=== PATIENT | male | born 1980 | race Caucasian/White ===

== ENCOUNTER 2017-10-25 14:13 | Inpatient (IN) | payer OTHER ==
[~2017-10-25] VITALS: Ht 162.6 cm; Wt 59.9 kg
[~2017-10-25 14:13] MED LIST: AMLO-114 PO; DOCU1TAB6 PO; FIBER PO; HPRF5 IV; IBUP-1459 PO; LISI10TA PO; NUTR-977 PO; OMEP40CA PO; ONDA8TAB7 PO; OXYC1TAB PO; OXYC1TAB3 PO; PROM25TA9 PO; SENN-61 PO; docusate
[2017-10-25] MEDS ORDERED: SODIUM CHLORIDE 0.9% 1000ML 1,000 ML IV STA ×2 (14:26→15:17)
--- NOTE | 2017-10-25 14:42 | EMERGENCY ROOM VISIT NOTE ---
History Report prepared by Tomasa: Jessie Lema Under the Supervision of: Dr. He Gamble M.D. First contact with patient: 14:15 Stated Complaint: CONFUSION/FALL History of Present Illness The patient is a 37 year old white male with a past medical history of lung cancer with stage 4 METS to the brain and liver who presents to the ED with a cc of worsening confusion beginning this past week. Per security guards, they are unsure what happened. Nursing staff reports that the patient had fallen today and his confusion increased. Nursing staff reports that he has been bed bound this past week. Positive weakness. HPI and ROS limited secondary to mental status. 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 A total of ten systems were reviewed and were otherwise negative. Past Medical & Surgical Medical Problems: (1) Cerebral aneurysm (2) Hypertension Family History No pertinent family history Social History Smoking Status: Current Every Day Smoker Marital Status: single Housing Status: other Occupation Status: unemployed Current/Historical Medications Scheduled Amlodipine (Norvasc), 10 MG PO DAILY Denosumab (Xgeva), 120 MG SQ Q4WK Docusate Sodium (Docusate Sodium), 100 MG PO TID Fiber Laxative (Fiber Laxative), 625 MG PO BID Heparin Sod (Porcine) (Heparin 100 Unit/Ml 5ML Flush), 10 ML IV UD Lactulose (Chronulac), 15 ML PO BID Lisinopril (Prinivil), 10 MG PO DAILY Metoclopramide (Reglan), 10 MG PO TID Omeprazole (Prilosec), 40 MG PO BID Oxycodone HCl (Oxycodone HCl ER), 40 MG PO BID Prednisone (Prednisone), 20 MG PO DAILY Senna (Senokot), 1 TAB PO BID Scheduled PRN Ibuprofen (Motrin), 400 MG PO TID PRN for Mild Pain Ondansetron Hcl (Zofran), 8 MG PO TID PRN for Nausea or Vomiting Promethazine Hcl (Phenergan), 25 MG PO QID PRN for Nausea Allergies Coded Allergies: Penicillins (Verified Allergy, Unknown, ., 10/25/17) Hydrochlorothiazide (Verified Adverse Reaction, Severe, Kidney failure, ) Amoxicillin (Verified Adverse Reaction, Mild, Ulcer-Mouth, 10/25/17) Clavulanic Acid (Verified Adverse Reaction, Mild, Ulcer-Mouth, 10/25/17) Physical Exam Vital Signs Date Time Temp Pulse Resp B/P (MAP) Pulse Ox O2 Delivery O2 Flow Rate FiO2 10/25/17 16:50 79/54 10/25/17 16:13 65 17 76 10/25/17 15:43 61 20 95 10/25/17 15:13 60 16 94 10/25/17 15:10 159/134 10/25/17 14:54 95 Room Air 10/25/17 14:43 57 18 94 10/25/17 14:32 127/79 10/25/17 14:29 136 10/25/17 14:27 160/141 10/25/17 14:25 36.7 95 26 127/79 97 Room Air Physical Exam GENERAL: Awake, alert, well-appearing, NAD, follows commands, smells of urine. HENT: Normocephalic, atraumatic. EYES: Normal conjunctiva. Sclera non-icteric. NECK: Supple. No nuchal rigidity. FROM. RESPIRATORY: Rhonchus breath sounds, no wheezing, crackles CARDIAC: RRR, no MRG ABDOMEN: Soft, NTND, BS+ MSK: No chest wall TTP, no LE edema NEURO: GCS 15, CN 2-12 intact, moves all 4s on command, symmetric strength SKIN: No jaundice noted. Dermitis over the medial anterior thighs. Questionable blanching in a small erythematous rash that is not confluent on bilateral feet. Pressure ulcerations to the left buttock and thigh. Stage 2. Medical Decision & Procedures ER Provider Diagnostic Interpretation: Radiology results as stated below per my review and radiologist interpretation: CHEST ONE VIEW PORTABLE HISTORY: 37 years-old Male EVALUATE WEAKNESS acute weakness. History of small cell lung carcinoma COMPARISON: Chest radiograph 08/14/2016 TECHNIQUE: Upright portable AP view of the chest FINDINGS: Cardiac silhouette is within normal limits. Left subclavian Xgbaxs-m-Bfce catheter is noted with distal tip in the right atrium. Focal masslike opacity the level the right lung base is again seen, 3.0 x 1.3 cm. Mediastinal prominence compatible with patient's known mediastinal mass. Patchy alveolar opacities are present within left perihilar distribution and left lung base. No pneumothorax or pleural effusion. Emphysema. The bones appear grossly intact. IMPRESSION: 1. New patchy opacities of the left perihilar distribution and left lung base suspicious for pneumonia or metastasis. Follow-up recommended. 2. Focal nodular opacity of the right lower lobe redemonstrated. The above report was generated using voice recognition software. It may contain grammatical, syntax or spelling errors. Electronically signed by: Nabeel Lopez M.D. 10/25/2017 2:45 PM Dictated Date/Time: 10/25/2017 2:42 PM HEAD WITHOUT CONTRAST (CT) CLINICAL HISTORY: 37 years-old Male with h/o of lung CA w/ liver/brain mets, CC confusion/fall. Acute confusion status post fall. History of lung cancer TECHNIQUE: Multiple axial CT images of the head were obtained without contrast. A dose lowering technique was utilized adhering to the principles of ALARA. CT DOSE: 614.27 mGy.cm COMPARISON: None. FINDINGS: No acute intracranial hemorrhage, midline shift, intracranial mass, hydrocephalus, territorial ischemia or abnormal extra-axial collection. Study is limited secondary to prominent streak artifact in the distribution of the suprasellar cistern, possibly from prior aneurysm coiling. Confluent areas of moderate hypoattenuation noted within the subcortical, deep and periventricular white matter of the cerebral hemispheres bilaterally. The calvarium is intact. The paranasal sinuses, mastoid air cells, and middle ear cavities are clear. IMPRESSION: 1. No acute intracranial abnormality identified. 2. Prominent streak artifact from metallic density structure within the suprasellar cistern suggesting aneurysm coils. 3. Confluent areas of moderate hypoattenuation noted within the subcortical, deep and periventricular white matter of the cerebral hemispheres bilaterally. These findings are nonspecific with differential considerations including but not limited to chronic microvascular ischemic changes, or demyelinating disease among other etiologies. The above report was generated using voice recognition software. It may contain grammatical, syntax or spelling errors. Electronically signed by: Nabeel Lopez M.D. 10/25/2017 4:03 PM Dictated Date/Time: 10/25/2017 3:58 PM ABD/PELVIS WITHOUT FOR STONE HISTORY: 37 years-old Male ARF, uremia, mets acute uremia with metastatic lung cancer. COMPARISON: CT abdomen and pelvis and CT chest from outside facility 06/02/2017. Images from comparison studies are available without associated report. TECHNIQUE: Multiple axial CT images of the abdomen and pelvis were obtained without contrast. A dose lowering technique was used consistent with the principals of KATHY. FINDINGS: Lobular soft tissue attenuating centrally cavitary mass of the right lower lobe on image 7 series 3 measures 4.0 x 2.2 cm, enlarged from study dated 06/02/2017 where it measured 2.8 x 1.6 cm on image 69 series 2 of that study. Emphysematous changes of the lung bases are again noted. There is progression of multifocal geographic groundglass and consolidative opacities of the imaged lung bases with large consolidative opacity of the left lower lobe measuring up to 9.5 x 3.0 cm. There is no pneumatosis or pneumoperitoneum identified. Imaged inferior cardiac chambers are unremarkable. Evaluation of the solid abdominal organs is limited without the use of IV contrast. There is a low attenuating 9 mm lesion noted within the subserosal posterior right hepatic lobe which appears new from comparison study. The liver is otherwise unremarkable. The spleen, gallbladder, pancreas and adrenal glands are within normal limits. Kidneys, ureters and prostate appear unremarkable. Guardado catheter is noted within a collapsed or bladder lumen. Moderate atherosclerosis of the aorta. No bulky retroperitoneal adenopathy. Small sliding-type hiatal hernia. No bowel obstruction or focal bowel wall thickening identified. There is moderate stool volume of the colon. The appendix appears normal. Soft tissues are unremarkable. Bones appear intact. Multilevel degenerative changes of the spine. Remote pars defects at L5 with grade 1 anterolisthesis. IMPRESSION: 1. Progressive enlargement of a centrally cavitary lobular soft tissue attenuating mass of the right lower lobe from comparison study dated 06/02/2017. Additionally, there is multifocal geographic consolidative opacities within the bilateral lung bases suggesting infectious or inflammatory pneumonitis and/or progression of metastatic disease. 2. Emphysema. 3. Ill-defined low attenuating 9 mm lesion of the posterior right hepatic lobe appears new from comparison study, suspicious for a possible hepatic metastasis. Evaluation of the solid abdominal organs is limited without contrast. 4. Suggested constipation. 5. No evidence of pathologic adenopathy. The above report was generated using voice recognition software. It may contain grammatical, syntax or spelling errors. Electronically signed by: Nabeel Lopez M.D. 10/25/2017 4:45 PM Dictated Date/Time: 10/25/2017 4:32 PM Laboratory Results 10/25/17 14:37 Red Blood Count 4.73, Mean Corpuscular Volume 82.9, Mean Corpuscular Hemoglobin 29.8, Mean Corpuscular Hemoglobin Concent 36.0, Mean Platelet Volume 10.9, Neutrophils (%) (Auto) 90.5, Lymphocytes (%) (Auto) 5.7, Monocytes (%) (Auto) 3.5, Eosinophils (%) (Auto) 0.0, Basophils (%) (Auto) 0.0, Neutrophils # (Auto) 19.01, Lymphocytes # (Auto) 1.19, Monocytes # (Auto) 0.74, Eosinophils # (Auto) 0.01, Basophils # (Auto) 0.00 10/25/17 14:37 Test 10/25/17 14:37 10/25/17 16:16 White Blood Count 21.02 K/uL (4.8-10.8) Red Blood Count 4.73 M/uL (4.7-6.1) Hemoglobin 14.1 g/dL (14.0-18.0) Hematocrit 39.2 % (42-52) Mean Corpuscular Volume 82.9 fL (80-100) Mean Corpuscular Hemoglobin 29.8 pg (25-34) Mean Corpuscular Hemoglobin Concent 36.0 g/dl (32-36) Platelet Count 250 K/uL (130-400) Mean Platelet Volume 10.9 fL (7.4-10.4) Neutrophils (%) (Auto) 90.5 % Lymphocytes (%) (Auto) 5.7 % Monocytes (%) (Auto) 3.5 % Eosinophils (%) (Auto) 0.0 % Basophils (%) (Auto) 0.0 % Neutrophils # (Auto) 19.01 K/uL (1.4-6.5) Lymphocytes # (Auto) 1.19 K/uL (1.2-3.4) Monocytes # (Auto) 0.74 K/uL (0.11-0.59) Eosinophils # (Auto) 0.01 K/uL (0-0.5) Basophils # (Auto) 0.00 K/uL (0-0.2) RDW Standard Deviation 46.3 fL (36.4-46.3) RDW Coefficient of Variation 15.2 % (11.5-14.5) Immature Granulocyte % (Auto) 0.3 % Immature Granulocyte # (Auto) 0.07 K/uL (0.00-0.02) Hypersegmented Polys 1+ Prothrombin Time 11.1 SECONDS (9.0-12.0) Prothromb Time International Ratio 1.0 (0.9-1.1) Activated Partial Thromboplast Time 31.1 SECONDS (21.0-31.0) Partial Thromboplastin Ratio 1.2 Venous Blood pH 7.27 (7.36-7.41) Venous Blood Partial Pressure CO2 42 mmHg (38.0-50.0) Venous Blood Partial Pressure O2 21 mmHg Venous Blood HCO3 19 mmol/L Venous Blood Oxygen Saturation < 60.0 % Venous Blood Base Excess -7.7 mEq/L Anion Gap 20.0 mmol/L (3-11) Est Creatinine Clear Calc Drug Dose 9.7 ml/min Estimated GFR () 7.7 Estimated GFR (Non- 6.6 BUN/Creatinine Ratio 19.5 (10-20) Lactic Acid Level 1.8 mmol/L (0.4-2.0) Calcium Level 9.1 mg/dl (8.5-10.1) Magnesium Level 2.9 mg/dl (1.8-2.4) Total Bilirubin 0.4 mg/dl (0.2-1) Direct Bilirubin 0.2 mg/dl (0-0.2) Aspartate Amino Transf (AST/SGOT) 47 U/L (15-37) Alanine Aminotransferase (ALT/SGPT) 23 U/L (12-78) Alkaline Phosphatase 91 U/L (45-117) Ammonia 22.0 umol/L (11-32) Troponin I 0.048 ng/ml (0-0.045) Total Protein 8.2 gm/dl (6.4-8.2) Albumin 4.0 gm/dl (3.4-5.0) Lipase 500 U/L (73-393) Thyroid Stimulating Hormone (TSH) 1.500 uIu/ml (0.300-4.500) Urine Color YELLOW Urine Appearance CLEAR (CLEAR) Urine pH 5.0 (4.5-7.5) Urine Specific [place] 1.018 (1.000-1.030) Urine Protein NEG (NEG) Urine Glucose (UA) NEG (NEG) Urine Ketones NEG (NEG) Urine Occult Blood NEG (NEG) Urine Nitrite NEG (NEG) Urine Bilirubin NEG (NEG) Urine Urobilinogen NEG (NEG) Urine Leukocyte Esterase TRACE (NEG) Urine WBC (Auto) 0 /hpf (0-5) Urine RBC (Auto) 0-4 /hpf (0-4) Urine Hyaline Casts (Auto) 1-5 /lpf (0-5) Urine Epithelial Cells (Auto) 0-5 /lpf (0-5) Urine Bacteria (Auto) NEG (NEG) Laboratory results reviewed by me Medications Administered Medications (Trade) Dose Ordered Sig/Shakila Route Start Time Stop Time Status Last Admin Dose Admin Sodium Chloride 1,000 ml @ 999 mls/hr Q1H1M STAT IV 10/25/17 14:26 10/25/17 15:26 DC 10/25/17 15:21 999 MLS/HR Cefepime HCl 2000 mg/Dextrose 112.5 ml @ 200 mls/hr ONE STAT IV 10/25/17 14:50 10/25/17 15:23 DC 10/25/17 16:47 200 MLS/HR Levofloxacin (Levaquin / D5W) 750 mg NOW ONCE IV 10/25/17 15:00 10/25/17 15:01 DC 10/25/17 15:22 750 MG Vancomycin HCl 1250 mg/Sodium Chloride 275 ml @ 125 mls/hr NOW STAT IV 10/25/17 14:50 10/25/17 17:01 DC 10/25/17 15:33 125 MLS/HR Sodium Chloride 1,000 ml @ 999 mls/hr Q1H1M STAT IV 10/25/17 15:17 10/25/17 16:17 DC 10/25/17 15:28 999 MLS/HR Lorazepam (Ativan Inj) 0.5 mg NOW STAT IV 10/25/17 15:17 10/25/17 15:23 DC 10/25/17 15:28 0.5 MG Procedure Lumbar Puncture Indication: Confusion, AMS. Verbal consent was obtained after the risks and benefits were explained, including but not limited to headache, bleeding/clotting, scarring, infection, pain, and bone/joint/nerve damage. At this time, the risks of the procedure are less than the risks of NOT performing the procedure. A time out was taken and the correct patient and site identified. The patient was placed in the right lateral decubitus position and the back was prepped with betadine and draped in the standard fashion. The L3 intervertebral space was identified, anesthetized locally with 1% lidocaine without epinephrine, and the spinal needle was inserted through the skin with the bevel parallel to the dural fibers. The needle was carefully advanced into the lumbar cistern and 2 tubes of straw colored and 2 tubes of bloody CSF was obtained. The stylet was replaced and the needle was removed. A bandaid was placed and the patient was placed in the supine position. The patient tolerated the procedure well and there were no complications. ECG Indication: altered mental status Rate (beats per minute): 131 Rhythm: atrial fibrillation Findings: other (RVR, lots of motion artifact) Comparison ECG Date: September 17, 2016 Change: Atrial fibrillation is new. ED Course 1420: The patient was evaluated in room C10. A complete history and physical exam was performed. 1519: I reevaluated the patient and I do not think the pressure ulcer is a deep space infection. No crepitus or fluctuance. No pain. 1558: Discussed the patient's case with Dr. Lee -Nephrology. He states that the patient should go to the ICU. 1629: Discussed the patient's case with Dr. Royal -Seafood Clerk. He would like the patient to have an LP performed. 1655: Discussed the patient's case with Dr. Enriquez. The patient will be evaluated for further treatment and disposition. Medical Decision The patient is a 37 year old white male with a past medical history of lung cancer with stage 4 METS to the brain and liver who presents to the ED with a cc of worsening confusion beginning this past week. Differential diagnoses include UTI, urosepsis, worsening tumor burden, ICH, sepsis. Patient was seen and evaluated the bedside. Per the history gleaned from the paperwork the patient had a fall today. Patient does have stage IV lung cancer with metastases to the brain and liver. Patient is a and O 2 follows commands. He does not have any gross neurologic deficits however the history and physical exam are somewhat limited. Unsure as to whether not this is baseline. Patient had undergone chemotherapy and radiation therapy in the past. Patient does have excoriations and rash to the medial thighs as well as the buttock area. Patient is tachycardic. Patient is afebrile. Patient did have a CT noncontrast brain, blood work, blood and urine cultures, IV fluids, EKG, troponin, chest x-ray completed. Patient was noted to have A. fib with RVR this is likely related to sepsis. Patient's lactate was normal. Patient's VBG did show an acidosis with a normal PCO2. Patient's acidosis is likely related to uremia patient has acute renal failure. Patient's BUNs 177 with a creatinine of 9. This is new. Patient is non-con CT was negative for any acute pathology. Patient did have CT non-con of the abdomen pelvis. This was also negative for any acute process. It does show his tumor burden within the abdomen. No obstruction is noted. Patient did have Guardado that was placed. Patient was making good urine. Given the patient's acute renal failure I did discuss the patient with the cosmetic counselor birgit came to evaluate the patient. Patient was alert and a bicarbonate drip. Given the patient's tachycardia and acute renal failure and further monitoring I did discuss the patient with the adoption social worker who also saw the patient. Patient was also given steroids. An LP was performed which did show some straw- colored and then bloody fluid. Patient tolerated the procedure well. This was sent off for further analysis. Acyclovir was also added for coverage. Medication Reconcilliation Current Medication List: was personally reviewed by al Blood Pressure Screening Patient's blood pressure: Normal blood pressure Will be further monitored by hospitalist. Consults Time Called: [phone] Consulting Physician: Dr. Lee -Nephrology Returned Call: [phone] Discussed the patient's case with Dr. Jesus Cuadra. He states that the patient should go to the ICU. Additional Consults: Time Called: 1625 Consulted Physician: Dr. Royal -Seafood Clerk Returned Call: [phone] Additional Comments: Discussed the patient's case with Dr. Royal -Seafood Clerk. He would like the patient to have an LP performed. Time Called: 1653 Consulted Physician: Dr. Enriquez Returned Call: [phone] Additional Comments: Discussed the patient's case with Dr. Enriquez. The patient will be evaluated for further treatment and disposition. Impression Primary Impression: Metastatic lung cancer (metastasis from lung to other site) Additional Impressions: Sepsis Pneumonia Confusion Acute renal failure Acidosis Critical Care I have personally spent greater than 80 minutes of critical care time in the direct management of this patient. This includes bedside care, interpretation of diagnostic studies, and testing, discussion with consultants, patient, and family members, and other required patient management activities. This 80 minutes is in excess of all separately billable procedures. Scribe Attestation The scribe's documentation has been prepared under my direction and personally reviewed by me in its entirety. I confirm that the note above accurately reflects all work, treatment, procedures, and medical decision making performed by me. Departure Information Dispostion Being Evaluated By Hospitalist Amy Cyr (PCP) Problem Qualifiers Primary Impression: Metastatic lung cancer (metastasis from lung to other site) Laterality: unspecified laterality Qualified Codes: C34.90 - Malignant neoplasm of unspecified part of unspecified bronchus or lung Additional Impressions: Sepsis Sepsis type: sepsis due to unspecified organism Qualified Codes: A41.9 - Sepsis, unspecified organism Pneumonia Pneumonia type: due to unspecified organism Laterality: right Lung location : lower lobe of lung Qualified Codes: J18.1 - Lobar pneumonia, unspecified organism Acute renal failure Acute renal failure type: unspecified Qualified Codes: N17.9 - Acute kidney failure, unspecified
--- NOTE | 2017-10-25 14:47 | DIAGNOSTIC IMAGING REPORT ---
CHEST ONE VIEW PORTABLE HISTORY: 37 years-old Male EVALUATE WEAKNESS acute weakness. History of small cell lung carcinoma COMPARISON: Chest radiograph 08/14/2016 TECHNIQUE: Upright portable AP view of the chest FINDINGS: Cardiac silhouette is within normal limits. Left subclavian Knexlx-h-Lngn catheter is noted with distal tip in the right atrium. Focal masslike opacity the level the right lung base is again seen, 3.0 x 1.3 cm. Mediastinal prominence compatible with patient's known mediastinal mass. Patchy alveolar opacities are present within left perihilar distribution and left lung base. No pneumothorax or pleural effusion. Emphysema. The bones appear grossly intact. IMPRESSION: 1. New patchy opacities of the left perihilar distribution and left lung base suspicious for pneumonia or metastasis. Follow-up recommended. 2. Focal nodular opacity of the right lower lobe redemonstrated. The above report was generated using voice recognition software. It may contain grammatical, syntax or spelling errors. Electronically signed by: Nabeel Lopez M.D. 10/25/2017 2:45 PM Dictated Date/Time: 10/25/2017 2:42 PM
[2017-10-25] MEDS ORDERED: CEFEPIME IV 2,000 MG in DEXTROSE 5% 100ML 100 ML IV STA (14:50)
[2017-10-25] MEDS ORDERED: VANCOMYCIN INJ 1,250 MG in SODIUM CHLORIDE 0.9% 250ML 250 ML IV STA (14:50)
[2017-10-25] MEDS ORDERED: METO-157 PO (14:57)
[2017-10-25] MEDS ORDERED: LACT10SO17 PO (14:57)
[2017-10-25] MEDS ORDERED: OMEP40CA41 PO (15:00)
[2017-10-25] MEDS ORDERED: ONDA8TAB6 PO (15:00)
[2017-10-25] MEDS ORDERED: LEVAQUIN 750MG / 150ML D5W IV ONE (15:00)
[2017-10-25] MEDS ORDERED: [UNRECOGNIZED DRUG - CODE] PO (15:00)
[2017-10-25] MEDS ORDERED: PRED20TA PO (15:01)
[2017-10-25] MEDS ORDERED: HPRF5 IV (15:05)
[2017-10-25] MEDS ORDERED: DENOINJ SQ (15:05)
[2017-10-25 15:06] LABS: VEN BLD GAS O2 SATURATION < 60.0 %; VEN BLOOD GAS BASE EXCESS -7.7 mEq/L; VENOUS BLOOD GAS PCO2 42 mmHg (38.0-50.0); VENOUS BLOOD GAS PO2 21 mmHg
[2017-10-25 15:09] LABS: HEMATOCRIT 39.2 % (42-52); MEAN CELL VOLUME 82.9 fL (80-100); MEAN CORPUSCULAR HEMOGLOBIN 29.8 pg (25-34); MEAN PLATELET VOLUME 10.9 fL (7.4-10.4); PLATELET COUNT 250 K/uL (130-400); RED BLOOD COUNT 4.73 M/uL (4.7-6.1); WHITE BLOOD COUNT 21.02 K/uL (4.8-10.8)
[2017-10-25 15:17] LABS: PARTIAL THROMBOPLASTIN RATIO 1.2; PROTHROMBIN TIME (PATIENT) 11.1 SECONDS (9.0-12.0)
[2017-10-25] MEDS ORDERED: LORAZEPAM 2 MG/ML 1 ML VIAL IV STA (15:17)
[2017-10-25 15:35] LABS: COMPLETE YES; HYPERSEGMENTED POLYS 1+; IG% 0.3 %; LYMPH % 5.7 %; LYMPH ABS # 1.19 K/uL (1.2-3.4); MONO % 3.5 %; NEUT % 90.5 %
[2017-10-25 15:44] LABS: CALCIUM 9.1 mg/dl (8.5-10.1); CREATININE 9.07 mg/dl (0.60-1.40); MAGNESIUM 2.9 mg/dl (1.8-2.4); POTASSIUM 5.3 mmol/L (3.5-5.1); THYROID STIMULATING HORMONE 1.5 uIu/ml (0.300-4.500)
[2017-10-25 15:54] LABS: BUN/CREATININE RATIO 19.5 (10-20)
--- NOTE | 2017-10-25 16:05 | DIAGNOSTIC IMAGING REPORT ---
HEAD WITHOUT CONTRAST (CT) CLINICAL HISTORY: 37 years-old Male with h/o of lung CA w/ liver/brain mets, CC confusion/fall. Acute confusion status post fall. History of lung cancer TECHNIQUE: Multiple axial CT images of the head were obtained without contrast. A dose lowering technique was utilized adhering to the principles of ALARA. CT DOSE: 614.27 mGy.cm COMPARISON: None. FINDINGS: No acute intracranial hemorrhage, midline shift, intracranial mass, hydrocephalus, territorial ischemia or abnormal extra-axial collection. Study is limited secondary to prominent streak artifact in the distribution of the suprasellar cistern, possibly from prior aneurysm coiling. Confluent areas of moderate hypoattenuation noted within the subcortical, deep and periventricular white matter of the cerebral hemispheres bilaterally. The calvarium is intact. The paranasal sinuses, mastoid air cells, and middle ear cavities are clear. IMPRESSION: 1. No acute intracranial abnormality identified. 2. Prominent streak artifact from metallic density structure within the suprasellar cistern suggesting aneurysm coils. 3. Confluent areas of moderate hypoattenuation noted within the subcortical, deep and periventricular white matter of the cerebral hemispheres bilaterally. These findings are nonspecific with differential considerations including but not limited to chronic microvascular ischemic changes, or demyelinating disease among other etiologies. The above report was generated using voice recognition software. It may contain grammatical, syntax or spelling errors. Electronically signed by: Nabeel Lopez M.D. 10/25/2017 4:03 PM Dictated Date/Time: 10/25/2017 3:58 PM
[2017-10-25] MEDS ORDERED: SODIUM BICARBONATE 8.4% INJ 75 MEQ in SODIUM CHLORIDE 0.45% 1000ML 1,000 ML IV SCH (16:15)
[2017-10-25 16:29] LABS: URINE APPEARANCE CLEAR (CLEAR); URINE BILIRUBIN NEG (NEG); URINE COLOR YELLOW; URINE EPITHELIAL CELL AUTO 0-5 /lpf (0-5); URINE NITRITE NEG (NEG); URINE SPECIFIC GRAVITY 1.018 (1.000-1.030); UROBILINOGEN NEG (NEG)
[2017-10-25 16:37] LABS: MANUAL MICROSCOPIC REQUIRED? NO; REVIEW REQ? NO
--- NOTE | 2017-10-25 16:47 | DIAGNOSTIC IMAGING REPORT ---
ABD/PELVIS WITHOUT FOR STONE HISTORY: 37 years-old Male ARF, uremia, mets acute uremia with metastatic lung cancer. COMPARISON: CT abdomen and pelvis and CT chest from outside facility 06/02/2017. Images from comparison studies are available without associated report. TECHNIQUE: Multiple axial CT images of the abdomen and pelvis were obtained without contrast. A dose lowering technique was used consistent with the principals of KATHY. FINDINGS: Lobular soft tissue attenuating centrally cavitary mass of the right lower lobe on image 7 series 3 measures 4.0 x 2.2 cm, enlarged from study dated 06/02/2017 where it measured 2.8 x 1.6 cm on image 69 series 2 of that study. Emphysematous changes of the lung bases are again noted. There is progression of multifocal geographic groundglass and consolidative opacities of the imaged lung bases with large consolidative opacity of the left lower lobe measuring up to 9.5 x 3.0 cm. There is no pneumatosis or pneumoperitoneum identified. Imaged inferior cardiac chambers are unremarkable. Evaluation of the solid abdominal organs is limited without the use of IV contrast. There is a low attenuating 9 mm lesion noted within the subserosal posterior right hepatic lobe which appears new from comparison study. The liver is otherwise unremarkable. The spleen, gallbladder, pancreas and adrenal glands are within normal limits. Kidneys, ureters and prostate appear unremarkable. Guardado catheter is noted within a collapsed or bladder lumen. Moderate atherosclerosis of the aorta. No bulky retroperitoneal adenopathy. Small sliding-type hiatal hernia. No bowel obstruction or focal bowel wall thickening identified. There is moderate stool volume of the colon. The appendix appears normal. Soft tissues are unremarkable. Bones appear intact. Multilevel degenerative changes of the spine. Remote pars defects at L5 with grade 1 anterolisthesis. IMPRESSION: 1. Progressive enlargement of a centrally cavitary lobular soft tissue attenuating mass of the right lower lobe from comparison study dated 06/02/2017. Additionally, there is multifocal geographic consolidative opacities within the bilateral lung bases suggesting infectious or inflammatory pneumonitis and/or progression of metastatic disease. 2. Emphysema. 3. Ill-defined low attenuating 9 mm lesion of the posterior right hepatic lobe appears new from comparison study, suspicious for a possible hepatic metastasis. Evaluation of the solid abdominal organs is limited without contrast. 4. Suggested constipation. 5. No evidence of pathologic adenopathy. The above report was generated using voice recognition software. It may contain grammatical, syntax or spelling errors. Electronically signed by: Nabeel Lopez M.D. 10/25/2017 4:45 PM Dictated Date/Time: 10/25/2017 4:32 PM
[2017-10-25] MEDS ORDERED: DEXAMETHASONE **PF** INJ 10 MG/ML VIAL IM ONE (17:00)
[2017-10-25] MEDS ORDERED: ACYCLOVIR SOD INJ 600 MG in DEXTROSE 5% 100ML 100 ML IV ONE (17:30)
[2017-10-25] MEDS ORDERED: PROMETHAZINE HCL 25 MG TAB PO PRN (18:00)
[2017-10-25] MEDS ORDERED: HYDROmorphone INJ 1 MG/ML SYR IV PRN (18:00)
[2017-10-25] MEDS ORDERED: ZOLPIDEM TARTRATE 5 MG TAB PO PRN (18:00)
--- NOTE | 2017-10-25 18:27 | Nephrology Consultation ---
Nephrology Consultation Date & Providers Date of Consultation: Oct 25, 2017. Primary Care Provider: Amy WU Referring Provider: Reason for Consultation Acute renal insufficiency History of Present Illness Mr. Ney Henderson is a 37-year-old male with metastatic non small cell lung cancer who presented to the ED at [facility] today for evaluation of mental status changes. Medical history is notable for known progressive metastatic disease including lung and liver metastasis. Treatment was started in 2014 with Alimta and carboplatinum. The patient was then maintained on Opdivo but unfortunately disease progressed. Ney then elected to forgo additional therapy and focus on palliative care. Most recent follow up in the cancer center was in March-April of 2017. Functional status has been very limited since that time. Mental status and overall functional status declining over the past 2-3 weeks but appreciably within the past couple of days. Today, Ney was found to have fallen from wheelchair to floor. The fall was unwitnessed but he was not unattended for any significant amount of time. No specific injury was identified. Mr. Henderson is an inmate and he was transferred to the ED at discretion of correction staff where he is a resident in the [facility] requiring daily assistance at baseline for most ADL's. He uses a wheelchair and does not ambulate independently. Appetite has been very poor. He had biju independent with meals but eating very little for the past couple of weeks. Medical history was predominately obtained from nursing staff at the [facility] and medical records. I discussed the plan of care with Dr. Gamble as well as Dr. Enriquez. Mental status is waxing and waning. Mr. Henderson did not initially respond to any questions or provide any history. He was agitated. When I returned several minutes later, I was able to obtain some simple answers and he did express some understanding of questions. He was able to respond when questioned to discussion regarding dialysis by stating "no, no, no." This is consistent with what I was told from nursing staff in the [facility] who told me that Ney had decided to focus on palliative care and to establish a DNR/DNI status avoiding any advanced interventions or significant escalation of care. An advanced directive provided also confirms that dialysis would not be part of the plan of care. Overall, the patient's prognosis is guarded and life expectancy limited. He was evaluated by the laundry presser in the ICU. I spoke with the laundry presser and we confirmed that ICU was not consistent with current goals of care. Interestingly, medical history suggests [employer] metastases including epidural metastatic disease but I am not able to confirm the extent of this finding. Evaluation in the Emergency Department revealed a leukocytosis (neurophil predominate), tachycardia and tachypnea. The patient is afebrile. Blood pressure was normal. There is advanced renal failure. Most recent laboratory studies from April 2017 documented a baseline creatinine of 1.1 mg/dL at that time. Current creatinine is 9 mg/dL with a BUN of 177. Associated metabolic abnormalities include a serum sodium of 131, potassium of 5.3, HCO3 of 18 and AG of 20. Lactate was <2. No new nephrotoxic medications including significant NSAID use were identified. Home medications include lisinopril. Broad spectrum antibiotics started for SIRs/possible sepsis with cefepime and vancomycin. LP was obtained. Urine analysis is bland with acellular microscopy. CT of the chest, abdomen and pelvis was personally reviewed. Kidneys are normal in appearance. Findings include progressive enlargement of a centrally cavitary mass of the right lower lobe as well as multifocal consolidative opacities within bilateral lung bases as well as progressive malignant disease in the liver. EKG documented atrial fibrillation with RVR. CT of the head is limited by motion artifact but no significant acute bleed or lesion is identified. Guardado catheter was placed without reported difficulty. Concentrate urine is draining. Past Medical/Surgical History Medical: -- Metastatic non-small cell lung cancer with disease in lung and liver -- Brain aneurysm coiled previously -- Hypertension Surgical: coiling of brain aneurysm Allergies Coded Allergies: Penicillins (Verified Allergy, Unknown, ., 10/25/17) Hydrochlorothiazide (Verified Adverse Reaction, Severe, Kidney failure, ) Amoxicillin (Verified Adverse Reaction, Mild, Ulcer-Mouth, 10/25/17) Clavulanic Acid (Verified Adverse Reaction, Mild, Ulcer-Mouth, 10/25/17) Inpatient Medications Current Inpatient Medications Medications (Trade) Dose Ordered Sig/Shakila Route Start Time Stop Time Status Last Admin Dose Admin Sodium Bicarbonate 75 meq/Sodium Chloride 1,075 ml @ 200 mls/hr [id number] IV 10/25/17 16:15 10/25/17 21:37 10/25/17 17:24 200 MLS/HR Acyclovir Sodium 600 mg/Dextrose 112 ml @ 100 mls/hr ONE ONCE IV 10/25/17 17:30 10/25/17 18:37 Family History No pertinent family history Social History Smoking Status: Current Every Day Smoker Marital Status: single Occupation: unemployed Review of Systems A complete review of systems was limited due to the patient's mental status. Pertinent positives are noted above. All other systems are negative. Physical Exam Date Time Temp Pulse Resp B/P (MAP) Pulse Ox O2 Delivery O2 Flow Rate FiO2 10/25/17 16:50 79/54 10/25/17 16:13 65 17 76 10/25/17 15:43 61 20 95 10/25/17 15:13 60 16 94 10/25/17 15:10 159/134 10/25/17 14:54 95 Room Air 10/25/17 14:43 57 18 94 10/25/17 14:32 127/79 10/25/17 14:29 136 10/25/17 14:27 160/141 10/25/17 14:25 36.7 95 26 127/79 97 Room Air General Appearance: + thin, + pertinent finding (chronically ill appearing, agitated) Head: atraumatic, + pertinent finding (temporal wasting) Eyes: normal inspection, sclerae normal ENT: + pertinent finding (oral mucosa are dry) Neck: supple, no JVD Respiratory/Chest: + decreased breath sounds, + pertinent finding (tachypneic without obvious respiratory distress) Cardiovascular: no gallop, + tachycardia, + irregularly irregular Abdomen/GI: non tender, soft, + distended Genitourinary - Male: + pertinent finding (Guardado draining concentrated urine) Extremities/Musculoskelatal: no pedal edema, + pertinent finding (no ditsal cyanosis) Neurologic/Psych: + pertinent finding (awake, mental status waxing and waning, responsive to voice and commands but slightly agitated, moving all extremities, resting tremor without obvious asterixis) Laboratory Results Last 24 Hours Test 10/25/17 14:37 10/25/17 16:16 10/25/17 17:27 White Blood Count 21.02 K/uL Red Blood Count 4.73 M/uL Hemoglobin 14.1 g/dL Hematocrit 39.2 % Mean Corpuscular Volume 82.9 fL Mean Corpuscular Hemoglobin 29.8 pg Mean Corpuscular Hemoglobin Concent 36.0 g/dl Platelet Count 250 K/uL Mean Platelet Volume 10.9 fL Neutrophils (%) (Auto) 90.5 % Lymphocytes (%) (Auto) 5.7 % Monocytes (%) (Auto) 3.5 % Eosinophils (%) (Auto) 0.0 % Basophils (%) (Auto) 0.0 % Neutrophils # (Auto) 19.01 K/uL Lymphocytes # (Auto) 1.19 K/uL Monocytes # (Auto) 0.74 K/uL Eosinophils # (Auto) 0.01 K/uL Basophils # (Auto) 0.00 K/uL RDW Standard Deviation 46.3 fL RDW Coefficient of Variation 15.2 % Immature Granulocyte % (Auto) 0.3 % Immature Granulocyte # (Auto) 0.07 K/uL Hypersegmented Polys 1+ Prothrombin Time 11.1 SECONDS Prothromb Time International Ratio 1.0 Activated Partial Thromboplast Time 31.1 SECONDS Partial Thromboplastin Ratio 1.2 Venous Blood pH 7.27 Venous Blood Partial Pressure CO2 42 mmHg Venous Blood Partial Pressure O2 21 mmHg Venous Blood HCO3 19 mmol/L Venous Blood Oxygen Saturation < 60.0 % Venous Blood Base Excess -7.7 mEq/L Sodium Level 131 mmol/L Potassium Level 5.3 mmol/L Chloride Level 93 mmol/L Carbon Dioxide Level 18 mmol/L Anion Gap 20.0 mmol/L Blood Urea Nitrogen 177 mg/dl Creatinine 9.07 mg/dl Est Creatinine Clear Calc Drug Dose 9.7 ml/min Estimated GFR () 7.7 Estimated GFR (Non- 6.6 BUN/Creatinine Ratio 19.5 Random Glucose 165 mg/dl Lactic Acid Level 1.8 mmol/L Calcium Level 9.1 mg/dl Magnesium Level 2.9 mg/dl Total Bilirubin 0.4 mg/dl Direct Bilirubin 0.2 mg/dl Aspartate Amino Transf (AST/SGOT) 47 U/L Alanine Aminotransferase (ALT/SGPT) 23 U/L Alkaline Phosphatase 91 U/L Ammonia 22.0 umol/L Troponin I 0.048 ng/ml Total Protein 8.2 gm/dl Albumin 4.0 gm/dl Lipase 500 U/L Thyroid Stimulating Hormone (TSH) 1.500 uIu/ml Urine Color YELLOW Urine Appearance CLEAR Urine pH 5.0 Urine Specific [place] 1.018 Urine Protein NEG Urine Glucose (UA) NEG Urine Ketones NEG Urine Occult Blood NEG Urine Nitrite NEG Urine Bilirubin NEG Urine Urobilinogen NEG Urine Leukocyte Esterase TRACE Urine WBC (Auto) 0 /hpf Urine RBC (Auto) 0-4 /hpf Urine Hyaline Casts (Auto) 1-5 /lpf Urine Epithelial Cells (Auto) 0-5 /lpf Urine Bacteria (Auto) NEG Impression (1) Acute renal failure (2) Acidosis (3) Sepsis (4) Metastatic lung cancer (metastasis from lung to other site) (5) Atrial fibrillation with rapid ventricular response (6) Encephalopathy Ney Henderson is a 37-year-old male with metastatic non-small cell lung cancer with lung and liver disease. He had progressive disease on treatment and has opted to continue with a more palliative approach to care. He is not on hospice. He has refused hemodialysis. Goals of care focused on quality of life. He presented to the ED with encephalopathy and fall. Evaluation is notable for acute renal insufficiency with associated metabolic abnormalities. He is non-oliguric at this time following Guardado placement. Kidneys are normal in appearance on CT scan. UA is bland with acellular microscopy. Clinical history and laboratory findings are not consistent with TMA. The etiology of his advanced renal insufficiency is unclear but dehydration and intravascular volume depletion are evident. The patient may be septic but BP was acceptable at the time of my evaluation. He is in atrial fibrillation with RVR. This is new. He has hyponatremia, hyperkalemia, metabolic acidosis with increased anion gap ( lactic acid normal). I do not appreciate a pericardial rub. Vancomycin and cefepime have been started. LP has been obtained. The patient is to be admitted to additional evaluation and management. Goals of care and plan of care were discussed in detail with all involved. Overall, prognosis is guarded. Differential includes sepsis, [employer] involvement of malignancy, seizure disorder and uremia. Recommendations -- 2 L of NS provided in the ED, additional boluses of saline as needed to maintain MAP 65 are encouraged -- MIVF with 1/2NS + 75 mEq HCO3 @ 200 ml/hr -- Document I/O's and maintain Guardado to gravity -- Repeat metabolic profile in 8 hours and check CPK with next set of labs -- Hold lisinopril -- Medications are currently appropriately dosed for renal function -- Check vancomycin level tomorrow prior to any additional dosing Will continue to monitor. Please call with questions or concerns.
--- NOTE | 2017-10-25 18:36 | History and Physical ---
History & Physical Date & Time of Service: Oct 25, 2017 at 18:04 Chief Complaint: Confusion/Fall Primary Care Physician: Amy WU History of Present Illness Source: patient, hospital records, other 37 y/o M Hx HTN, metastatic non-small cell lung CA - metastasis to liver and brain. The pt resides in a correctional facility and had previously undergone standard chemotherapy followed by Alimtshakila and Keytruda which have not had the desired effect. Recently, he had decided to forgo additional curative therapy. Per the staff at the [facility], he has exhibited declining functional and mental status over the past few months and has become care-dependent. He is wheelchair bound presently. Over the past day he has exhibited a sharp decline in mentation and was sent to the hospital therefore. He is unable to contribute to the HPI although he can answer simple questions given time. Initial labs are notable for ARF with a BUN/creat of 177/9 and leukocytosis. He is tachycardic and may be exhibiting occasional AF on monitor. He is afebrile and no signs of focal infection were reported. The pt was initially designated for ICU admission, however, his directive states that dialysis is not to be undertaken and it appears that his goals of care may be more palliative at present. Past Medical/Surgical History Medical Problems: 1) Cerebral aneurysm 2) Hypertension 3) Non-small cell lung CA Family History No pertinent family history Social History Smoking Status: Current Every Day Smoker Marital Status: single Occupational Status: unemployed Allergies Coded Allergies: Penicillins (Verified Allergy, Unknown, ., 10/25/17) Hydrochlorothiazide (Verified Adverse Reaction, Severe, Kidney failure, ) Amoxicillin (Verified Adverse Reaction, Mild, Ulcer-Mouth, 10/25/17) Clavulanic Acid (Verified Adverse Reaction, Mild, Ulcer-Mouth, 10/25/17) Home Medications Scheduled Amlodipine (Norvasc), 10 MG PO DAILY Denosumab (Xgeva), 120 MG SQ Q4WK Docusate Sodium (Docusate Sodium), 100 MG PO TID Fiber Laxative (Fiber Laxative), 625 MG PO BID Heparin Sod (Porcine) (Heparin 100 Unit/Ml 5ML Flush), 10 ML IV UD Lactulose (Chronulac), 15 ML PO BID Lisinopril (Prinivil), 10 MG PO DAILY Metoclopramide (Reglan), 10 MG PO TID Omeprazole (Prilosec), 40 MG PO BID Oxycodone HCl (Oxycodone HCl ER), 40 MG PO BID Prednisone (Prednisone), 20 MG PO DAILY Senna (Senokot), 1 TAB PO BID Scheduled PRN Ibuprofen (Motrin), 400 MG PO TID PRN for Mild Pain Ondansetron Hcl (Zofran), 8 MG PO TID PRN for Nausea or Vomiting Promethazine Hcl (Phenergan), 25 MG PO QID PRN for Nausea Physical Exam Vital Signs Date Time Temp Pulse Resp B/P (MAP) Pulse Ox O2 Delivery O2 Flow Rate FiO2 10/25/17 16:50 79/54 10/25/17 16:13 65 17 76 10/25/17 15:43 61 20 95 10/25/17 15:13 60 16 94 10/25/17 15:10 159/134 10/25/17 14:54 95 Room Air 10/25/17 14:43 57 18 94 10/25/17 14:32 127/79 10/25/17 14:29 136 10/25/17 14:27 160/141 10/25/17 14:25 36.7 95 26 127/79 97 Room Air Diagnostics Laboratory Results Results Past 24 Hours Test 10/25/17 14:37 10/25/17 16:16 10/25/17 17:27 Range/Units White Blood Count 21.02 4.8-10.8 K/uL Red Blood Count 4.73 4.7-6.1 M/uL Hemoglobin 14.1 14.0-18.0 g/dL Hematocrit 39.2 42-52 % Mean Corpuscular Volume 82.9 80-100 fL Mean Corpuscular Hemoglobin 29.8 25-34 pg Mean Corpuscular Hemoglobin Concent 36.0 32-36 g/dl Platelet Count 250 130-400 K/uL Mean Platelet Volume 10.9 7.4-10.4 fL Neutrophils (%) (Auto) 90.5 % Lymphocytes (%) (Auto) 5.7 % Monocytes (%) (Auto) 3.5 % Eosinophils (%) (Auto) 0.0 % Basophils (%) (Auto) 0.0 % Neutrophils # (Auto) 19.01 1.4-6.5 K/uL Lymphocytes # (Auto) 1.19 1.2-3.4 K/uL Monocytes # (Auto) 0.74 0.11-0.59 K/uL Eosinophils # (Auto) 0.01 0-0.5 K/uL Basophils # (Auto) 0.00 0-0.2 K/uL RDW Standard Deviation 46.3 36.4-46.3 fL RDW Coefficient of Variation 15.2 11.5-14.5 % Immature Granulocyte % (Auto) 0.3 % Immature Granulocyte # (Auto) 0.07 0.00-0.02 K/uL Hypersegmented Polys 1+ Prothrombin Time 11.1 9.0-12.0 SECONDS Prothromb Time International Ratio 1.0 0.9-1.1 Activated Partial Thromboplast Time 31.1 21.0-31.0 SECONDS Partial Thromboplastin Ratio 1.2 Venous Blood pH 7.27 7.36-7.41 Venous Blood Partial Pressure CO2 42 38.0-50.0 mmHg Venous Blood Partial Pressure O2 21 mmHg Venous Blood HCO3 19 mmol/L Venous Blood Oxygen Saturation < 60.0 % Venous Blood Base Excess -7.7 mEq/L Sodium Level 131 136-145 mmol/L Potassium Level 5.3 3.5-5.1 mmol/L Chloride Level 93 98-107 mmol/L Carbon Dioxide Level 18 21-32 mmol/L Anion Gap 20.0 3-11 mmol/L Blood Urea Nitrogen 177 7-18 mg/dl Creatinine 9.07 0.60-1.40 mg/dl Est Creatinine Clear Calc Drug Dose 9.7 ml/min Estimated GFR () 7.7 Estimated GFR (Non- 6.6 BUN/Creatinine Ratio 19.5 10-20 Random Glucose 165 70-99 mg/dl Lactic Acid Level 1.8 0.4-2.0 mmol/L Calcium Level 9.1 8.5-10.1 mg/dl Magnesium Level 2.9 1.8-2.4 mg/dl Total Bilirubin 0.4 0.2-1 mg/dl Direct Bilirubin 0.2 0-0.2 mg/dl Aspartate Amino Transf (AST/SGOT) 47 15-37 U/L Alanine Aminotransferase (ALT/SGPT) 23 12-78 U/L Alkaline Phosphatase 91 45-117 U/L Ammonia 22.0 11-32 umol/L Troponin I 0.048 0-0.045 ng/ml Total Protein 8.2 6.4-8.2 gm/dl Albumin 4.0 3.4-5.0 gm/dl Lipase 500 73-393 U/L Thyroid Stimulating Hormone (TSH) 1.500 0.300-4.500 uIu/ml Urine Color YELLOW Urine Appearance CLEAR CLEAR Urine pH 5.0 4.5-7.5 Urine Specific [place] 1.018 1.000-1.030 Urine Protein NEG NEG Urine Glucose (UA) NEG NEG Urine Ketones NEG NEG Urine Occult Blood NEG NEG Urine Nitrite NEG NEG Urine Bilirubin NEG NEG Urine Urobilinogen NEG NEG Urine Leukocyte Esterase TRACE NEG Urine WBC (Auto) 0 0-5 /hpf Urine RBC (Auto) 0-4 0-4 /hpf Urine Hyaline Casts (Auto) 1-5 0-5 /lpf Urine Epithelial Cells (Auto) 0-5 0-5 /lpf Urine Bacteria (Auto) NEG NEG Microbiology Results 10/25/17 Blood Culture, Received Pending 10/25/17 Blood Culture, Ordered Pending 10/25/17 Gram Stain, Ordered Pending 10/25/17 CSF Culture, Ordered Pending 10/25/17 Urine Culture, Received Pending Impression Assessment and Plan 37 y/o M Hx HTN, metastatic non-small cell lung CA - metastasis to liver, and brain. The pt resides in a correctional facility and had previously undergone standard chemotherapy followed by [place] and Rosa which have not had the desired effect. Recently, he had decided to forgo additional curative therapy. Per the staff at [facility], he has exhibited declining functional and mental status over the past few months and has become care-dependent. He is wheelchair bound presently. Over the past day he has exhibited a sharp decline in mentation and was sent to the hospital therefore. He is unable to contribute to the HPI although he can answer simple questions given time. Initial labs are notable for ARF with a BUN/creat of 177/9 and leukocytosis. He is tachycardic and may be exhibiting occasional AF on monitor. He is afebrile and no signs of focal infection were reported. The pt was initially designated for ICU admission, however, his directive states that dialysis is not to be undertaken and it appears that his goals of care may be more palliative at present. 1) AMS - chronic and progressive - may be multifactorial at present - significant uremia is present, infection cannot be ruled out and the pt likely has brain metastasis. We will aggressively hydrate and start empiric antibiotics pending culture results. A lumbar tap was performed in the ER, the results of which are pending. 2) ARF - directive instructs against dialysis - nephrology consult was completed in the ER. IVF provided - electrolytes will be trended. 3) Tachycardia with occasional AF on monitor - I would choose to gauge his response to fluids and monitor on telemetry for the time being - Cardizem or a Bblocker can be considered following resuscitation. 4) Lung CA - liver and brain mets - He is taking daily prednisone - we could not assess for edema with an MRI at present - Would consider an increased steroid dose or a switch to dexamethasone if infection is ruled out. No further treatment or evaluation is to be undertaken. We are instructed by the correctional staff that per the pt , no phone calls are to be made directly to family and the staff is to mediate any communication - this could be further verified during the weekday if needed DNR - SCDs for 24 hrs due to lumbar tap - would consider avoiding any anticoagualtion as brain mets and an aneurysm history are in the pt record Total time for this admit including review of labs, meds, records - discussion with pt, motor vehicle examiner, correctional staff, ER attending - 48 min Level of Care Telemetry Resuscitation Status DO NOT RESUSCITATE VTE Prophylaxis VTE Risk Assessment Done? Y/N: Yes Risk Level: High Given or contraindicated: SCD's
[2017-10-25 18:45] LABS: CSF CHEMISTRY TUBE # 2
[2017-10-25 19:25] LABS: CSF APPEARANCE CLOUDY; CSF COLOR YELLOW; CSF XANTHOCHROMIC XANTHOCHROMIC
[2017-10-25 19:30] VITALS: BP 82/41; PULSE 124; TEMP 36.8; O2SAT 95; Ht 162.6 cm; Wt 59.9 kg
[2017-10-25 19:33] LABS: CSF TOTAL PROTEIN > 1000.0 mg/dl (15.0-45.0)
[2017-10-25 19:35] LABS: BENZODIAZEPINE, URINE NEG (NEG); COCAINE,URINE NEG (NEG); PHENCYCLIDINE, URINE NEG (NEG)
[2017-10-25] MEDS ORDERED: NURSING VERBAL MED ORDER ONE (20:00)
[2017-10-25] MEDS ORDERED: D5W AND NSS 1,000 ML IV SCH (20:00)
[2017-10-25] MEDS ORDERED: CEFEPIME CONSULT ACTIVE PRN ×2 (20:00)
[2017-10-25] MEDS: DOCUSATE SODIUM 100 MG CAP PO SCH (20:40)
[2017-10-25] MEDS: LACTULOSE SYRUP 10 GM/15 ML BTL 473 ML PO SCH (20:40)
[2017-10-25] MEDS: SENNA 8.6 MG TAB PO SCH (20:41)
[2017-10-25 20:57] VITALS: BP 72/53
[2017-10-25] MEDS: SODIUM CHLORIDE 0.9% 1000ML 1,000 ML IV SCH (20:57)
[2017-10-25] MEDS: PANTOprazole SOD 40 MG TAB PO SCH (20:58)
[2017-10-25] MEDS: OXYCODONE HCL 40 MG TABCR (OXYCONTIN) PO SCH (20:58)
[2017-10-25] MEDS: METOCLOPRAMIDE HCL 10 MG TAB PO SCH (20:58)
[2017-10-25 21:57] LABS: CREATININE 6.45 mg/dl (0.60-1.40); MAGNESIUM 2.2 mg/dl (1.8-2.4); PHOSPHORUS 5.1 mg/dl (2.5-4.9); POTASSIUM 5.3 mmol/L (3.5-5.1)
[2017-10-25 22:03] LABS: BUN/CREATININE RATIO 24.3 (10-20)
[2017-10-25 22:16] LABS: CALCIUM 7.4 mg/dl (8.5-10.1)
[2017-10-25] MEDS ORDERED: METOPROLOL TARTRATE 1 MG/ML VIAL IV STA (22:38)
[2017-10-25 22:42] VITALS: BP 124/79
[2017-10-25 23:23] VITALS: BP 87/50
[2017-10-25 23:51] VITALS: BP 98/43
[2017-10-26] VITALS (10 sets, daily range): BP systolic 67–101; BP diastolic 33–71; PULSE 88–126; TEMP 36.3–37.2; O2SAT 88–92
[2017-10-26] MEDS: LORAZEPAM 2 MG/ML 1 ML VIAL IV PRN ×6 (00:04→21:59)
[2017-10-26] MEDS: SODIUM CHLORIDE 0.9% 1000ML 1,000 ML IV SCH ×2 (02:03→08:47)
[2017-10-26 07:22] LABS: BUN/CREATININE RATIO 35.7 (10-20); CALCIUM 6.9 mg/dl (8.5-10.1); CREATININE 3.81 mg/dl (0.60-1.40); PHOSPHORUS 3.7 mg/dl (2.5-4.9); POTASSIUM 5.3 mmol/L (3.5-5.1)
[2017-10-26] MEDS: METOCLOPRAMIDE HCL 10 MG TAB PO SCH (08:51)
[2017-10-26] MEDS: PANTOprazole SOD 40 MG TAB PO SCH (08:51)
[2017-10-26] MEDS: SENNA 8.6 MG TAB PO SCH (08:51)
[2017-10-26] MEDS: LACTULOSE SYRUP 10 GM/15 ML BTL 473 ML PO SCH (08:51)
[2017-10-26] MEDS: DOCUSATE SODIUM 100 MG CAP PO SCH (08:51)
[2017-10-26] MEDS: OXYCODONE HCL 40 MG TABCR (OXYCONTIN) PO SCH (08:56)
[2017-10-26] MEDS ORDERED: AMLODIPINE BESYLATE 5 MG TAB PO SCH (09:00)
[2017-10-26] MEDS ORDERED: LISINOPRIL 10 MG TAB PO SCH (09:00)
[2017-10-26] MEDS ORDERED: HALOPERIDOL LACTATE 5 MG/ML 1 ML VIAL IM STA (09:57)
[2017-10-26] MEDS ORDERED: MoRPHine SULFATE 2 MG/ML CARP IV STA ×2 (09:57→10:14)
[2017-10-26] MEDS ORDERED: MoRPHine SULFATE 2 MG/ML CARP ONE ×2 (10:03→10:14)
--- NOTE | 2017-10-26 10:28 | Nephrology Progress Note ---
Nephrology Progress Note Date of Service Oct 26, 2017. Chief Complaint Acute renal insufficiency Subjective Ney is very agitated this morning. He is calling out and trashing in bed. He continues to repeat "help me." When I specifically asked about pain, there was no meaningful verbal response. When I specifically asked about shortness of breath, he did look at me and gasp while stating "I'm dying." These are the only other meaningful words I could understand in addition to "help me." By report there appears to have been a fairly sudden change within the past couple of hours. The patient was noted to be hypoxic. He remains in sinus tachycardia with PACs. Ney continues to pull at lines and tubes. He is removing his covers. The bedside patrol guard did express that he has known Ney for a long period of time and described a significant progressive decline. Review of Systems A complete review of systems was unable to be obtained due to distress and patient's current mental status. Vital Signs Last 8 Hrs Date Time Temp Pulse Resp B/P (MAP) Pulse Ox O2 Delivery O2 Flow Rate FiO2 10/26/17 08:03 122 16 91/43 (59) 10/26/17 06:12 100/37 (58) 10/26/17 05:50 88/57 (67) 10/26/17 05:41 74/35 (48) 10/26/17 04:13 36.4 120 17 69/40 (50) 88 Nasal Cannula 10/26/17 04:00 Oxymask 4.0 10/26/17 03:29 101/71 (81) I & O 24-Hour Column 10/27/17 08:00 Intake Total 1432 ml Output Total 1000 ml Balance 432 ml Last Recorded Weight Weight (Kilograms): 59.900 Physical Exam General Appearance: + moderate distress Head: normocephalic, atraumatic ENT: + pertinent finding (oral mucosa significantly dry) Respiratory/Chest: + rhonchi, + pertinent finding (upper airway secretions) Cardiovascular: + tachycardia Abdomen/GI: soft, + pertinent finding (no guarding) Genitourinary - Male: + pertinent finding (Guardado draining concentrated urine) Neurologic/Psych: + pertinent finding (unable to assess for orientation, Ney does not demonstrate meaningful understanding of his surroundings or situation, he is in obvious distress) Physical exam limited due to the patient's significant agitation and distress Family History No pertinent family history Social History Marital Status: single Occupation: unemployed Laboratory Results Past 24 Hours 10/25/17 14:37 Red Blood Count 4.73, Mean Corpuscular Volume 82.9, Mean Corpuscular Hemoglobin 29.8, Mean Corpuscular Hemoglobin Concent 36.0, Mean Platelet Volume 10.9, Neutrophils (%) (Auto) 90.5, Lymphocytes (%) (Auto) 5.7, Monocytes (%) (Auto) 3.5, Eosinophils (%) (Auto) 0.0, Basophils (%) (Auto) 0.0, Neutrophils # (Auto) 19.01, Lymphocytes # (Auto) 1.19, Monocytes # (Auto) 0.74, Eosinophils # (Auto) 0.01, Basophils # (Auto) 0.00 10/25/17 14:37 10/25/17 20:52 10/26/17 06:22 Test 10/25/17 14:37 10/25/17 16:16 10/25/17 17:15 10/25/17 20:52 White Blood Count 21.02 K/uL (4.8-10.8) Red Blood Count 4.73 M/uL (4.7-6.1) Hemoglobin 14.1 g/dL (14.0-18.0) Hematocrit 39.2 % (42-52) Mean Corpuscular Volume 82.9 fL (80-100) Mean Corpuscular Hemoglobin 29.8 pg (25-34) Mean Corpuscular Hemoglobin Concent 36.0 g/dl (32-36) Platelet Count 250 K/uL (130-400) Mean Platelet Volume 10.9 fL (7.4-10.4) Neutrophils (%) (Auto) 90.5 % Lymphocytes (%) (Auto) 5.7 % Monocytes (%) (Auto) 3.5 % Eosinophils (%) (Auto) 0.0 % Basophils (%) (Auto) 0.0 % Neutrophils # (Auto) 19.01 K/uL (1.4-6.5) Lymphocytes # (Auto) 1.19 K/uL (1.2-3.4) Monocytes # (Auto) 0.74 K/uL (0.11-0.59) Eosinophils # (Auto) 0.01 K/uL (0-0.5) Basophils # (Auto) 0.00 K/uL (0-0.2) RDW Standard Deviation 46.3 fL (36.4-46.3) RDW Coefficient of Variation 15.2 % (11.5-14.5) Immature Granulocyte % (Auto) 0.3 % Immature Granulocyte # (Auto) 0.07 K/uL (0.00-0.02) Hypersegmented Polys 1+ Prothrombin Time 11.1 SECONDS (9.0-12.0) Prothromb Time International Ratio 1.0 (0.9-1.1) Activated Partial Thromboplast Time 31.1 SECONDS (21.0-31.0) Partial Thromboplastin Ratio 1.2 Venous Blood pH 7.27 (7.36-7.41) Venous Blood Partial Pressure CO2 42 mmHg (38.0-50.0) Venous Blood Partial Pressure O2 21 mmHg Venous Blood HCO3 19 mmol/L Venous Blood Oxygen Saturation < 60.0 % Venous Blood Base Excess -7.7 mEq/L Anion Gap 20.0 mmol/L (3-11) 15.0 mmol/L (3-11) Est Creatinine Clear Calc Drug Dose 9.7 ml/min 13.0 ml/min Estimated GFR () 7.7 11.6 Estimated GFR (Non- 6.6 10.0 BUN/Creatinine Ratio 19.5 (10-20) 24.3 (10-20) Lactic Acid Level 1.8 mmol/L (0.4-2.0) Calcium Level 9.1 mg/dl (8.5-10.1) 7.4 mg/dl (8.5-10.1) Magnesium Level 2.9 mg/dl (1.8-2.4) 2.2 mg/dl (1.8-2.4) Total Bilirubin 0.4 mg/dl (0.2-1) Direct Bilirubin 0.2 mg/dl (0-0.2) Aspartate Amino Transf (AST/SGOT) 47 U/L (15-37) Alanine Aminotransferase (ALT/SGPT) 23 U/L (12-78) Alkaline Phosphatase 91 U/L (45-117) Ammonia 22.0 umol/L (11-32) Troponin I 0.048 ng/ml (0-0.045) Total Protein 8.2 gm/dl (6.4-8.2) Albumin 4.0 gm/dl (3.4-5.0) Lipase 500 U/L (73-393) Thyroid Stimulating Hormone (TSH) 1.500 uIu/ml (0.300-4.500) Urine Color YELLOW Urine Appearance CLEAR (CLEAR) Urine pH 5.0 (4.5-7.5) Urine Specific [place] 1.018 (1.000-1.030) Urine Protein NEG (NEG) Urine Glucose (UA) NEG (NEG) Urine Ketones NEG (NEG) Urine Occult Blood NEG (NEG) Urine Nitrite NEG (NEG) Urine Bilirubin NEG (NEG) Urine Urobilinogen NEG (NEG) Urine Leukocyte Esterase TRACE (NEG) Urine WBC (Auto) 0 /hpf (0-5) Urine RBC (Auto) 0-4 /hpf (0-4) Urine Hyaline Casts (Auto) 1-5 /lpf (0-5) Urine Epithelial Cells (Auto) 0-5 /lpf (0-5) Urine Bacteria (Auto) NEG (NEG) Urine Opiates Screen POS (NEG) Urine Methadone, Qualitative NEG (NEG) Urine Barbiturates NEG (NEG) Urine Phencyclidine (PCP) Level NEG (NEG) Ur Amphetamine/Methamphetamine NEG (NEG) MDMA (Ecstasy) Screen NEG (NEG) Urine Benzodiazepines Screen NEG (NEG) Urine Cocaine Metabolite NEG (NEG) Urine Marijuana (THC) NEG (NEG) CSF Color YELLOW CSF Appearance CLOUDY CSF WBC 140 /uL (0-5) CSF RBC 110 /uL (0) CSF Polynuclear WBCs 86.0 % CSF Mononuclear WBCs 14.0 % CSF Xanthrochromic XANTHOCHROMIC CSF Cell Count Tube # 1 CSF Mononuclear WBCs % % CSF Polynuclear WBCs (%) % CSF Chemistry Tube # 2 CSF Glucose 47 mg/dl (40-70) CSF Total Protein > 1000.0 mg/dl (15.0-45.0) Phosphorus Level 5.1 mg/dl (2.5-4.9) Test 10/26/17 06:22 Anion Gap 13.0 mmol/L (3-11) Est Creatinine Clear Calc Drug Dose 22.0 ml/min Estimated GFR () 21.9 Estimated GFR (Non- 18.9 BUN/Creatinine Ratio 35.7 (10-20) Calcium Level 6.9 mg/dl (8.5-10.1) Phosphorus Level 3.7 mg/dl (2.5-4.9) Magnesium Level 2.0 mg/dl (1.8-2.4) Allergies Coded Allergies: Penicillins (Verified Allergy, Unknown, ., 10/25/17) Hydrochlorothiazide (Verified Adverse Reaction, Severe, Kidney failure, ) Amoxicillin (Verified Adverse Reaction, Mild, Ulcer-Mouth, 10/25/17) Clavulanic Acid (Verified Adverse Reaction, Mild, Ulcer-Mouth, 10/25/17) Medications Current Inpatient Medications Medications (Trade) Dose Ordered Sig/Shakila Route Start Time Stop Time Status Last Admin Dose Admin Lactulose (Chronulac Syrup) 15 gm BID PO 10/25/17 21:00 11/24/17 20:59 10/26/17 08:51 15 GM Metoclopramide HCl (Reglan Tab) 10 mg TID PO 10/25/17 21:00 11/24/17 20:59 10/26/17 08:51 10 MG Oxycodone HCl (Oxycontin Tab) 40 mg BID PO 10/25/17 21:00 11/08/17 20:59 10/26/17 08:56 40 MG Prednisone (PredniSONE TAB) 20 mg DAILY PO 10/26/17 09:00 11/25/17 08:59 10/26/17 08:51 20 MG Promethazine HCl (Phenergan Tab) 25 mg QID PRN PO 10/25/17 18:00 11/24/17 17:59 Senna (Senokot Tab) 8.6 mg BID PO 10/25/17 21:00 11/24/17 20:59 10/26/17 08:51 8.6 MG Docusate Sodium (coLACE CAP) 100 mg TID PO 10/25/17 21:00 11/24/17 20:59 10/26/17 08:51 100 MG Pantoprazole Sodium (Protonix Tab) 40 mg BID PO 10/25/17 21:00 11/24/17 20:59 10/26/17 08:51 40 MG Hydromorphone HCl (Dilaudid Inj) 1 mg Q3H PRN IV 10/25/17 18:00 11/08/17 17:59 Sodium Chloride 1,000 ml @ 200 mls/hr Q5H IV 10/25/17 20:00 10/26/17 10:59 10/26/17 08:47 200 MLS/HR Lorazepam (Ativan Inj) 1 mg Q4H PRN IV 10/25/17 18:15 11/24/17 18:14 10/26/17 04:18 1 MG Cefepime HCl (Consult) 1 ea UD PRN N/A 10/25/17 20:00 11/24/17 19:59 Heparin Sodium (Porcine) (Heparin 100 Unit/ml 5ml Flush) 5 ml PRN PRN IV 10/26/17 00:30 11/25/17 00:29 Cefepime HCl 2000 mg/Syringe 20 ml @ 5 mls/min Q24H IV 10/26/17 16:00 11/09/17 15:59 Haloperidol Lactate (Haldol Inj) 5 mg NOW STAT IM 10/26/17 09:57 10/26/17 09:58 UNV Morphine Sulfate (MoRPHine SULFATE INJ) 2 mg NOW STAT IV 10/26/17 09:57 10/26/17 09:58 UNV Impression (1) Acute renal failure (2) Acidosis (3) Sepsis (4) Metastatic lung cancer (metastasis from lung to other site) (5) Atrial fibrillation with rapid ventricular response (6) Encephalopathy Ney Henderson is a 37-year-old male with metastatic non-small cell lung cancer with lung and liver disease. Malignancy progressed on treatment and current goals of care have been focused on comfort. In addition to DNR/DNI status and avoiding other aggressive measures, he had refused dialysis. Renal replacement therapy is unlikely to provide any therapeutic benefit or to extend life. Ney presented to the ED yesterday with acute mental status changes, progressive decline in functional status and a fall. He was found to have acute renal insufficiency with associated metabolic abnormalities as well as SIRs criteria and atrial arrhythmia. He is non- oliguric. Kidneys are normal in appearance on CT scan. UA is bland with acellular microscopy. Markers of kidney function are improving with IVF consistent with prerenal azotemia. Metabolic profile is otherwise stable. Unfortunately, clinical status has declined. Ney is obviously agitated and in distress. He is suffering with apparent dyspnea and delirium. Vancomycin and cefepime have been started. LP did not completely exclude possible meningitis - CSF was cloudy with 140 WBC (86% PMN) as well as 100 RBC, protein increased >1000 and glucose 47. No organisms and a few WBCs were seen on gram stain. This is certainly concerning for [employer] involvement of his malignancy. Overall, prognosis is guarded. Recommendations -- Current plan of care focused on restoring comfort and controlling a very agitated patient -- Providers are currently unable to attend to patient due to level of agitation -- Reasonable to hold IVF at this time given current status -- He does remains volume depleted and ultimately may benefit from maintaining a positive fluid balance but lungs are coarse and breathing appears labored. Based on exam and progressive hypoxia, it is reasonable to suspect flash pulmonary edema -- I discussed the plan of care with Dr. Schneider, agree that morphine would be appropriate to help control apparent dyspnea -- Once the patient is reasonably comfortably and cooperative additional evaluation will be possible -- The patient is known to have chronic pain and by report daily pain medication use -- Document I/O's and maintain Guardado to gravity -- Repeat metabolic profile in 8 hours and check CPK with next set of labs -- Hold lisinopril -- Medications are currently appropriately dosed for renal function -- Check vancomycin level prior to any additional dosing
[2017-10-26 13:08] LABS: HEMATOCRIT 35.1 % (42-52); MEAN CELL VOLUME 84.4 fL (80-100); MEAN CORPUSCULAR HEMOGLOBIN 29.3 pg (25-34); MEAN CORPUSCULAR HGB CONC 34.8 g/dl (32-36); MEAN PLATELET VOLUME 10.1 fL (7.4-10.4); PLATELET COUNT 154 K/uL (130-400); RED BLOOD COUNT 4.16 M/uL (4.7-6.1); WHITE BLOOD COUNT 15.91 K/uL (4.8-10.8)
[2017-10-26 13:39] LABS: CALCIUM 6.9 mg/dl (8.5-10.1); CREATININE 2.73 mg/dl (0.60-1.40); POTASSIUM 5.5 mmol/L (3.5-5.1)
[2017-10-26 13:41] LABS: PHOSPHORUS 4.2 mg/dl (2.5-4.9)
[2017-10-26 14:02] LABS: COMPLETE YES; IG% 0.3 %; LYMPH % 2.2 %; LYMPH ABS # 0.35 K/uL (1.2-3.4); MONO % 2.7 %; NEUT % 94.8 %
--- NOTE | 2017-10-26 15:43 | Progress Note ---
Subjective Date of Service: Oct 26, 2017. Subjective Pt evaluation today including: physical exam, lab review, review of studies, conversation w/ direct response consultant, review of inpatient medication list Pain: in distress PO Intake: NPO Voiding: alvarez catheter in place patient seen this morning, in severe respiratory distress, confused, agitated if he was a level 1 he would have needed intubation spoke with staff at the infirmary at [facility], confirmed level 5, DNR, DNI, no hemodialysis they were considering keeping him at [facility] BEDS AT [facility] on comfort but only had one physician signature and needed 2 so had to send him to hospital explained that he may not come back, grave prognosis reviewed labs, dramatic improvement in Cr, but poor urine output improvement in leukocytosis however, hypotensive and tachycardic despite aggressive fluids reviewed CT and CXR, evidence of bilateral pneumonia, progression of lung cancer per RN at [facility], he had been hallucination now for over a week, mental status deteriorating Problem List Medical Problems: (1) Acidosis Status: Acute (2) Acute renal failure Status: Acute (3) Confusion Status: Acute (4) Metastatic lung cancer (metastasis from lung to other site) Status: Acute (5) Pneumonia Status: Acute (6) Sepsis Status: Acute Review of Systems cannot review, non responsive Medications Current Inpatient Medications Medications (Trade) Dose Ordered Sig/Shakila Route Start Time Stop Time Status Last Admin Dose Admin Lorazepam (Ativan Inj) 1 mg Q4H PRN IV 10/25/17 18:15 11/24/17 18:14 10/26/17 14:15 1 MG Cefepime HCl (Consult) 1 ea UD PRN N/A 10/25/17 20:00 11/24/17 19:59 Heparin Sodium (Porcine) (Heparin 100 Unit/ml 5ml Flush) 5 ml PRN PRN IV 10/26/17 00:30 11/25/17 00:29 Cefepime HCl 2000 mg/Syringe 20 ml @ 5 mls/min Q24H IV 10/26/17 16:00 11/09/17 15:59 Morphine Sulfate (MoRPHine SULFATE INJ) 4 mg Q2H PRN IV 10/26/17 14:00 11/09/17 13:59 Objective Vital Signs Date Time Temp Pulse Resp B/P (MAP) Pulse Ox O2 Delivery O2 Flow Rate FiO2 10/26/17 15:27 88 24 67/33 (44) 91 Nasal Cannula 10.0 10/26/17 15:00 36.3 126 20 90 10.0 10/26/17 12:53 36.3 126 20 98/51 (67) 90 Oxymask 10.0 10/26/17 12:00 Oxymask 10.0 10/26/17 08:03 36.3 122 16 91/43 (59) 89 Oxymask 4.0 10/26/17 08:00 Oxymask 4.0 10/26/17 06:12 100/37 (58) 10/26/17 05:50 88/57 (67) 10/26/17 05:41 74/35 (48) 10/26/17 04:13 36.4 120 17 69/40 (50) 88 Nasal Cannula 10/26/17 04:00 Oxymask 4.0 10/26/17 03:29 101/71 (81) 10/26/17 00:28 37.2 111 16 81/51 (61) 92 10/26/17 00:00 Oxymask 4.0 10/25/17 23:51 98/43 (61) 10/25/17 23:23 87/50 (62) 10/25/17 22:49 124 124/79 10/25/17 22:42 124/79 (94) 10/25/17 20:57 72/53 (59) 10/25/17 20:00 Nasal Cannula 2.0 10/25/17 19:30 36.8 124 22 82/41 95 Nasal Cannula 2.0 10/25/17 18:32 108/48 10/25/17 18:25 113 19 90 10/25/17 17:55 136 19 91 10/25/17 17:25 123 19 10/25/17 16:55 87 25 90 10/25/17 16:50 79/54 10/25/17 16:13 65 17 76 10/25/17 15:43 61 20 95 Physical Exam General Appearance: + severe distress, + thin (muscle wasting) Neck: supple, no adenopathy, no JVD Respiratory/Chest: + respiratory distress, + decreased breath sounds, + accessory muscle use, + rhonchi Cardiovascular: no gallop, no JVD, no murmur, + tachycardia, + irregularly irregular Abdomen: non tender, soft, no organomegaly, + abnormal bowel sounds (hypoactive ) Extremities: normal inspection, no pedal edema, no calf tenderness, normal capillary refill, pelvis stable Neurologic/Psychiatric: + disoriented, + pertinent finding (agitated, cannot follow commands for exam) Skin: normal color, warm/dry, no rash Laboratory Results Last 24 Hours Test 10/25/17 16:16 10/25/17 17:15 10/25/17 20:52 10/26/17 06:22 Urine Color YELLOW Urine Appearance CLEAR Urine pH 5.0 Urine Specific [place] 1.018 Urine Protein NEG Urine Glucose (UA) NEG Urine Ketones NEG Urine Occult Blood NEG Urine Nitrite NEG Urine Bilirubin NEG Urine Urobilinogen NEG Urine Leukocyte Esterase TRACE Urine WBC (Auto) 0 /hpf Urine RBC (Auto) 0-4 /hpf Urine Hyaline Casts (Auto) 1-5 /lpf Urine Epithelial Cells (Auto) 0-5 /lpf Urine Bacteria (Auto) NEG Urine Opiates Screen POS Urine Methadone, Qualitative NEG Urine Barbiturates NEG Urine Phencyclidine (PCP) Level NEG Ur Amphetamine/Methamphetamine NEG MDMA (Ecstasy) Screen NEG Urine Benzodiazepines Screen NEG Urine Cocaine Metabolite NEG Urine Marijuana (THC) NEG CSF Color YELLOW CSF Appearance CLOUDY CSF WBC 140 /uL CSF RBC 110 /uL CSF Polynuclear WBCs 86.0 % CSF Mononuclear WBCs 14.0 % CSF Xanthrochromic XANTHOCHROMIC CSF Cell Count Tube # 1 CSF Mononuclear WBCs % % CSF Polynuclear WBCs (%) % CSF Chemistry Tube # 2 CSF Glucose 47 mg/dl CSF Total Protein > 1000.0 mg/dl Sodium Level 137 mmol/L 143 mmol/L Potassium Level 5.3 mmol/L 5.3 mmol/L Chloride Level 106 mmol/L 113 mmol/L Carbon Dioxide Level 16 mmol/L 17 mmol/L Anion Gap 15.0 mmol/L 13.0 mmol/L Blood Urea Nitrogen 157 mg/dl 136 mg/dl Creatinine 6.45 mg/dl 3.81 mg/dl Est Creatinine Clear Calc Drug Dose 13.0 ml/min 22.0 ml/min Estimated GFR () 11.6 21.9 Estimated GFR (Non- 10.0 18.9 BUN/Creatinine Ratio 24.3 35.7 Random Glucose 107 mg/dl 91 mg/dl Calcium Level 7.4 mg/dl 6.9 mg/dl Phosphorus Level 5.1 mg/dl 3.7 mg/dl Magnesium Level 2.2 mg/dl 2.0 mg/dl Test 10/26/17 12:56 White Blood Count 15.91 K/uL Red Blood Count 4.16 M/uL Hemoglobin 12.2 g/dL Hematocrit 35.1 % Mean Corpuscular Volume 84.4 fL Mean Corpuscular Hemoglobin 29.3 pg Mean Corpuscular Hemoglobin Concent 34.8 g/dl Platelet Count 154 K/uL Mean Platelet Volume 10.1 fL Neutrophils (%) (Auto) 94.8 % Lymphocytes (%) (Auto) 2.2 % Monocytes (%) (Auto) 2.7 % Eosinophils (%) (Auto) 0.0 % Basophils (%) (Auto) 0.0 % Neutrophils # (Auto) 15.08 K/uL Lymphocytes # (Auto) 0.35 K/uL Monocytes # (Auto) 0.43 K/uL Eosinophils # (Auto) 0.00 K/uL Basophils # (Auto) 0.00 K/uL RDW Standard Deviation 47.8 fL RDW Coefficient of Variation 15.3 % Immature Granulocyte % (Auto) 0.3 % Immature Granulocyte # (Auto) 0.05 K/uL Sodium Level 144 mmol/L Potassium Level 5.5 mmol/L Chloride Level 117 mmol/L Carbon Dioxide Level 18 mmol/L Anion Gap 9.0 mmol/L Blood Urea Nitrogen 115 mg/dl Creatinine 2.73 mg/dl Est Creatinine Clear Calc Drug Dose 30.7 ml/min Estimated GFR () 32.7 Estimated GFR (Non- 28.2 BUN/Creatinine Ratio 42.0 Random Glucose 149 mg/dl Calcium Level 6.9 mg/dl Phosphorus Level 4.2 mg/dl Magnesium Level 2.0 mg/dl Assessment and Plan 37 yo male with diagnosis of metastatic non-small cell lung cancer with mets in the brain and liver and diffusely in the lungs. Progressed despite chemotherapy. Presented with altered mental status, hypotensive, tachycardic, respiratory distress Severe JAIDEN with Cr 9. Evidence of severe sepsis and then progressed to septic shock. - Bilateral pneumonia causing septic shock, acute hypoxic respiratory failure in the setting of metastatic non small cell lung cancer patient would need intubated, central line, vasopressor and ICU transfer this would be against his wishes according to advance directive that he had at [facility] spoke with RN at the [facility], confirmed these wishes in their documents since he could not tell me himself initially given Cefepime, Vanco, Levaquin and aggressive IV fluids hypotensive with systolic pressures in the 60-70's and tachycardic decision made to make him comfort measures, transfer to medical floor ideally he would go back to [facility] but I feel that he is too unstable for transport, would not want him to during transport Morphine 4mg IV q2 PRN per policy, we cannot contact inmate's family since the guardian is the State made [facility] aware of grave prognosis - Metabolic encephalopathy: due to sepsis, not responding currently - JAIDEN: due to septic shock, improvement in Cr with IV fluids, poor UO 45 minutes spent on patient today
[2017-10-26] MEDS ORDERED: CEFEPIME IV 2,000 MG in SYRINGE 7.5 ML IV SCH (16:00)
[2017-10-26] MEDS ORDERED: CEFEPIME IV 500 MG in SYRINGE 0 ML IV SCH (16:00)
[2017-10-26] MEDS: MoRPHine SULFATE 4 MG/ML 1 ML CARP\\VIAL IV PRN ×2 (19:28→21:42)
[2017-10-27] MEDS: MoRPHine SULF/NSS 250MG/250ML 250 ML IV PRN ×3 (00:31→06:15)
[2017-10-27] MEDS ORDERED: LORAZEPAM INJ 1 MG in SYRINGE 0.5 ML IV PRN ×2 (06:30→09:45)
[2017-10-27] MEDS ORDERED: NURSING VERBAL MED ORDER ONE ×3 (08:00→13:45)
--- NOTE | 2017-10-27 09:16 | Nephrology Progress Note ---
Nephrology Progress Note Date of Service Oct 27, 2017. Chief Complaint Follow-up for acute kidney injury. Mc Brewster was seen and examined in his room this morning. has been on NRB mask, having SOB, did not communicate. BP stable. Renal functioning improving, has been volume overloaded. Review of Systems A complete review of systems was performed. Pertinent positives are noted above. All other systems are negative. Vital Signs Last 8 Hrs Date Time Temp Pulse Resp B/P (MAP) Pulse Ox O2 Delivery O2 Flow Rate FiO2 10/27/17 00:15 Non-Rebreather 15.0 Last Recorded Weight Weight (Kilograms): 59.900 Physical Exam GENERAL: young male, in resp distress, has not been responding much. NECK: Supple, no JVD. RESPIRATORY: crackles bilaterally CARDIOVASCULAR: S1, S2 normal, rate rhythm regular. EXTREMITY: Trace lower extremity edema NEURO: moves extremities Family History No pertinent family history Social History Marital Status: single Occupation: unemployed Laboratory Results Past 24 Hours 10/26/17 12:56 Red Blood Count 4.16, Mean Corpuscular Volume 84.4, Mean Corpuscular Hemoglobin 29.3, Mean Corpuscular Hemoglobin Concent 34.8, Mean Platelet Volume 10.1, Neutrophils (%) (Auto) 94.8, Lymphocytes (%) (Auto) 2.2, Monocytes (%) (Auto) 2.7, Eosinophils (%) (Auto) 0.0, Basophils (%) (Auto) 0.0, Neutrophils # (Auto) 15.08, Lymphocytes # (Auto) 0.35, Monocytes # (Auto) 0.43, Eosinophils # (Auto) 0.00, Basophils # (Auto) 0.00 10/26/17 12:56 Test 10/26/17 12:56 White Blood Count 15.91 K/uL (4.8-10.8) Red Blood Count 4.16 M/uL (4.7-6.1) Hemoglobin 12.2 g/dL (14.0-18.0) Hematocrit 35.1 % (42-52) Mean Corpuscular Volume 84.4 fL (80-100) Mean Corpuscular Hemoglobin 29.3 pg (25-34) Mean Corpuscular Hemoglobin Concent 34.8 g/dl (32-36) Platelet Count 154 K/uL (130-400) Mean Platelet Volume 10.1 fL (7.4-10.4) Neutrophils (%) (Auto) 94.8 % Lymphocytes (%) (Auto) 2.2 % Monocytes (%) (Auto) 2.7 % Eosinophils (%) (Auto) 0.0 % Basophils (%) (Auto) 0.0 % Neutrophils # (Auto) 15.08 K/uL (1.4-6.5) Lymphocytes # (Auto) 0.35 K/uL (1.2-3.4) Monocytes # (Auto) 0.43 K/uL (0.11-0.59) Eosinophils # (Auto) 0.00 K/uL (0-0.5) Basophils # (Auto) 0.00 K/uL (0-0.2) RDW Standard Deviation 47.8 fL (36.4-46.3) RDW Coefficient of Variation 15.3 % (11.5-14.5) Immature Granulocyte % (Auto) 0.3 % Immature Granulocyte # (Auto) 0.05 K/uL (0.00-0.02) Anion Gap 9.0 mmol/L (3-11) Est Creatinine Clear Calc Drug Dose 30.7 ml/min Estimated GFR () 32.7 Estimated GFR (Non- 28.2 BUN/Creatinine Ratio 42.0 (10-20) Calcium Level 6.9 mg/dl (8.5-10.1) Phosphorus Level 4.2 mg/dl (2.5-4.9) Magnesium Level 2.0 mg/dl (1.8-2.4) Allergies Coded Allergies: Penicillins (Verified Allergy, Unknown, ., 10/25/17) Hydrochlorothiazide (Verified Adverse Reaction, Severe, Kidney failure, ) Amoxicillin (Verified Adverse Reaction, Mild, Ulcer-Mouth, 10/25/17) Clavulanic Acid (Verified Adverse Reaction, Mild, Ulcer-Mouth, 10/25/17) Medications Current Inpatient Medications Medications (Trade) Dose Ordered Sig/Shakila Route Start Time Stop Time Status Last Admin Dose Admin Lorazepam (Ativan Inj) 1 mg Q4H PRN IV 10/25/17 18:15 11/24/17 18:14 10/26/17 21:59 1 MG Heparin Sodium (Porcine) (Heparin 100 Unit/ml 5ml Flush) 5 ml PRN PRN IV 10/26/17 00:30 11/25/17 00:29 10/26/17 21:43 5 ML Morphine Sulfate (MoRPHine SULFATE INJ) 4 mg Q2H PRN IV 10/26/17 14:00 11/09/17 13:59 10/26/17 21:42 4 MG Morphine Sulfate/ Dextrose 250 ml @ 5 mls/hr Q24H PRN IV 10/27/17 00:00 11/10/17 00:00 10/27/17 06:15 4 MLS/HR Lorazepam 1 mg/ Syringe 1 ml @ 1 mls/min Q4H PRN IV 10/27/17 06:30 11/26/17 06:29 10/27/17 06:31 1 MLS/MIN Impression (1) Acute renal failure (2) Acidosis (3) Sepsis (4) Metastatic lung cancer (metastasis from lung to other site) (5) Atrial fibrillation with rapid ventricular response (6) Encephalopathy Ney Henderson is a 37-year-old male with metastatic non-small cell lung cancer with lung and liver disease. Malignancy progressed on treatment and current goals of care have been focused on comfort. In addition to DNR/DNI status and avoiding other aggressive measures, he had refused dialysis. Renal replacement therapy is unlikely to provide any therapeutic benefit or to extend life. Ney presented to the ED yesterday with acute mental status changes, progressive decline in functional status and a fall. He was found to have acute renal insufficiency with associated metabolic abnormalities as well as SIRs criteria and atrial arrhythmia. He is non- oliguric. Kidneys are normal in appearance on CT scan. UA is bland with acellular microscopy. Markers of kidney function are improving with IVF consistent with prerenal azotemia. Metabolic profile is otherwise stable. Unfortunately, clinical status has declined. Ney is obviously agitated and in distress. He is suffering with apparent dyspnea and delirium. Vancomycin and cefepime have been started. LP did not completely exclude possible meningitis - CSF was cloudy with 140 WBC (86% PMN) as well as 100 RBC, protein increased >1000 and glucose 47. No organisms and a few WBCs were seen on gram stain. This is certainly concerning for BEVERAGE HOST involvement of his malignancy. Overall, prognosis is guarded. Recommendations -- give lasix 80 mg IV x 1 dose now and then as needed -- Document I/O's and maintain Guardado to gravity -- Hold lisinopril, monitor renal function -- Medications are currently appropriately dosed for renal function -- Check vancomycin level prior to any additional dosing Overall prognosis seem poor although renal function and electrolyte has been relatively stable. Will follow
[2017-10-27] MEDS ORDERED: FUROSEMIDE INJ 80 MG in SYRINGE 0 ML IV ONE (09:30)
[2017-10-27] MEDS ORDERED: ATROPINE SULFATE 1% OP SOLN 2 ML BTL SL PRN (09:45)
[2017-10-27] MEDS ORDERED: SCOPOLAMINE 1.5 MG TDSY TD SCH (10:00)
[2017-10-27] MEDS ORDERED: LORAZEPAM 2 MG/ML 1 ML VIAL ONE (14:48)
[2017-10-27] MEDS ORDERED: LORAZEPAM 2 MG/ML 1 ML VIAL IV PRN (15:00)
--- NOTE | 2017-10-27 15:12 | Hospitalist Progress Note ---
Hospitalist Progress Note Date of Service Oct 27, 2017. (Lorraine Robles .RICARDO) Subjective Pt evaluation today including: physical exam, lab review, review of studies, review of inpatient medication list Voiding: alvarez catheter in place (concentrated) Patient resting in bed. Non-responsive. On non-rebreather. Spontaneous movements. ROS cannot be obtained secondary to patient's status. Per security guards, patient resting comfortably today. (Lorraine Robles PA-C) Medications Current Inpatient Medications Medications (Trade) Dose Ordered Sig/Shakila Route Start Time Stop Time Status Last Admin Dose Admin Heparin Sodium (Porcine) (Heparin 100 Unit/ml 5ml Flush) 5 ml PRN PRN IV 10/26/17 00:30 11/25/17 00:29 10/26/17 21:43 5 ML Morphine Sulfate (MoRPHine SULFATE INJ) 4 mg Q2H PRN IV 10/26/17 14:00 11/09/17 13:59 10/26/17 21:42 4 MG Morphine Sulfate/ Dextrose 250 ml @ 6 mls/hr Q24H PRN IV 10/27/17 00:00 11/10/17 00:00 10/27/17 06:15 4 MLS/HR Lorazepam 1 mg/ Syringe 1 ml @ 1 mls/min Q1H PRN IV 10/27/17 09:45 11/26/17 09:44 10/27/17 09:38 1 MLS/MIN Scopolamine (Transderm-Scop Patch) 1.5 mg Q72H TD 10/27/17 10:00 11/26/17 09:59 10/27/17 09:56 1.5 MG Miscellaneous (Remove Transderm-Scop Patch) 1 ea Q72H N/A 10/27/17 10:00 11/26/17 09:59 Miscellaneous Information (Check Scopolamine Patch Placement) 1 ea QS N/A 10/27/17 16:00 11/26/17 15:59 Atropine Sulfate (ATROPINE SULFATE 1% Op Soln 2 ML) 3 drops Q2H PRN SL 10/27/17 09:45 11/26/17 09:44 Lorazepam (Ativan Inj) 1 mg Q1H PRN IV 10/27/17 15:00 11/26/17 14:59 (Murarik, Lorraine ., PA-C) Objective Vital Signs Date Time Temp Pulse Resp B/P (MAP) Pulse Ox O2 Delivery O2 Flow Rate FiO2 10/27/17 08:00 Non-Rebreather 15.0 10/27/17 00:15 Non-Rebreather 15.0 10/26/17 16:00 Oxymask 10.0 10/26/17 15:27 88 24 67/33 (44) 91 Nasal Cannula 10.0 10/26/17 15:00 36.3 126 20 90 10.0 (Lorraine Robles, PA-C) Physical Exam General Appearance: + mild distress, + pertinent finding (non-rebreather ) Neck: supple Respiratory/Chest: no respiratory distress, + decreased breath sounds, + accessory muscle use Cardiovascular: regular rate, rhythm Abdomen: soft, + abnormal bowel sounds (hypoactive) Extremities: no pedal edema Neurologic/Psychiatric: + pertinent finding (non-responsive, spontaneous movements ) Skin: normal color, warm/dry, + rash (petechiae noted to bilateral lower extremities (ankle region)) (Lorraine Robles, FREDDYC) Assessment and Plan 37 y/o male with diagnosis of metastatic non-small cell lung cancer with mets in the brain and liver and diffusely in the lungs. Progressed despite chemotherapy. Presented with altered mental status, hypotensive, tachycardic, respiratory distress. Severe JAIDEN with Cr 9. Evidence of severe sepsis and then progressed to septic shock. Bilateral pneumonia causing septic shock, acute hypoxic respiratory failure in the setting of metastatic non small cell lung cancer- COMFORT MEASURES ONLY OF 10/26: - Admitted to tele- transferred to med/surg for SECURITY SYSTEM TECHNICIAN - Advance directive at [facility]- DNR/DNI - Initially given Cefepime, Vanco, Levaquin and aggressive IV fluids- d/c'd due to SECURITY SYSTEM TECHNICIAN - IV Morphine gtt, IV Ativan, Scopolamine patch, Atropine drops for SECURITY SYSTEM TECHNICIAN Metabolic encephalopathy due to sepsis: SECURITY SYSTEM TECHNICIAN JAIDEN due to septic shock: SECURITY SYSTEM TECHNICIAN DVT prophylaxis: SECURITY SYSTEM TECHNICIAN Code Status: LEVEL V, DNR Dispo: SECURITY SYSTEM TECHNICIAN- [facility] aware of poor prognosis and to contact family (Lorraine Robles, FREDDYC) Reviewed: Pt Seen/Exam by Me (Daniela Conde MD) History Physician Cap Blocker Supervision Note: I interviewed and examined the patient. Discussed with SANDI Robles and agree with findings and plan as documented in the note. Any exceptions or clarifications are listed here: Pt's family at bedside. Pt unresponsive and appears mildly agitated. He was placed on SECURITY SYSTEM TECHNICIAN yesterday after having severe agitation, yelling out for help, very poor prognosis with severe renal failure and septic shock from PNA. Vitals reviewed Appears thin, chronically ill Appears with jerky movements periodicaly of the arms and legs, eyes rolled back in head and unresponsive, on NRB Tachycardic and reg, no mgr Lungs with faint wheezing throughout, coarse BS Abd +BS soft NT ND Ext no edema Pt is an unfortunate 37 yo male with metastatic NSCLC with mets to brain, liver , and bones/spine, here with PNA, septic shock, JAIDEN and progressive metasttic disease. Due to severe agitation, very guarded prognosis, and advanced wishes for DNR/DNI, pt was made SECURITY SYSTEM TECHNICIAN. -continue morphine gtt, ativan prn, atropine drops -no labs or needle sticks -suportive care given to family members at bedside and all questions answered Documented By: Daniela Conde (Daniela Conde MD)
[2017-10-27] MEDS: CHECK SCOPOLAMINE PATCH PLACEMENT SCH ×2 (16:01→23:24)
[2017-10-28 15:39] LABS: HSV TYPE 1 DNA Not Detected (Not Detected); HSV TYPE 1&2 DNA SOURCE CSF; HSV TYPE 2 DNA Not Detected (Not Detected)
[2017-10-29 15:02] LABS: COD UR NEGATIVE NG/ML (CUTOFF=50); HYDROCOD UR NEGATIVE NG/ML (CUTOFF=50); HYDROMOR UR NEGATIVE NG/ML (CUTOFF=50); MORPHINE UR NEGATIVE NG/ML (CUTOFF=50); NORHYDROCODONE CONF UR NEGATIVE NG/ML (CUTOFF=50); OXYMORPH UR 6490 NG/ML (CUTOFF=50)
== END 2017-10-28 06:00 | disposition expired | DRG 871 ==
LOC: EDBD 14:13 → C.EDC 14:15 → C.2E 17:53 → EDBEDREQ 17:58 → ENRESERV 18:39 → C.4E 10-26 15:20
PROVIDERS: ADMIT Internal Medicine; ATTEND Family Medicine
PROC: 009U3ZX Drainage of Spinal Canal, Percutaneous Approach, Diagnostic (ICD-10-PCS; principal; 2017-10-25)
DX: A41.9 Sepsis, unspecified organism (principal); R65.21 Severe sepsis with septic shock; J18.9 Pneumonia, unspecified organism; J96.01 Acute respiratory failure with hypoxia; G93.41 Metabolic encephalopathy; N17.9 Acute kidney failure, unspecified; E87.1 Hypo-osmolality and hyponatremia; C34.90 Malignant neoplasm of unspecified part of unspecified bronchus or lung; C79.31 Secondary malignant neoplasm of brain; C78.7 Secondary malignant neoplasm of liver and intrahepatic bile duct; C79.51 Secondary malignant neoplasm of bone; E87.5 Hyperkalemia; E87.70 Fluid overload, unspecified; R45.1 Restlessness and agitation; I48.91 Unspecified atrial fibrillation; I10 Essential (primary) hypertension; Z51.5 Encounter for palliative care; Z66 Do not resuscitate; Z74.01 Bed confinement status; Z91.81 History of falling; Z87.891 Personal history of nicotine dependence; Z79.01 Long term (current) use of anticoagulants; Z79.52 Long term (current) use of systemic steroids; Z79.83 Long term (current) use of bisphosphonates; Z79.891 Long term (current) use of opiate analgesic; Z79.899 Other long term (current) drug therapy